=== PATIENT | male | born 1955 | race Caucasian/White ===

== ENCOUNTER 2017-10-14 16:47 | Emergency (ER) | payer BC ==
[~2017-10-14] VITALS: Ht 172.7 cm; Wt 97.9 kg
[2017-10-14 16:58] VITALS: BP 108/78
[2017-10-14] MEDS ORDERED: proparacaine 0.5% ophthalmic drops 15ml EACHEYE ONE (17:55)
[2017-10-14] MEDS ORDERED: CIPR2.5D18 RIGHTEYE (18:16)
[2017-10-14] MEDS ORDERED: HYDR-3965 PO ×2 (18:19→18:33)
[2017-10-14] MEDS ORDERED: ciprofloxacin 0.3% 2.5ml ophthalmic solution RIGHTEYE SCH (20:00)
== END 2017-10-14 18:45 | disposition home or self-care (01) ==
LOC: ER 16:48
DX: T15.01XA Foreign body in cornea, right eye, initial encounter (principal); I10 Essential (primary) hypertension; X58.XXXA Exposure to other specified factors, initial encounter; Y93.89 Activity, other specified; Y92.89 Other specified places as the place of occurrence of the external cause; Y99.8 Other external cause status
CPT/HCPCS: 65220; 99284

== ENCOUNTER 2019-08-17 10:53 | Emergency (ER) | payer BC ==
[~2019-08-17] VITALS: Ht 172.7 cm; Wt 114.0 kg
[~2019-08-17 10:53] MED LIST: CIPR2.5D18 RIGHTEYE; HYDR-3965 PO
[2019-08-17] MEDS ORDERED: TETanus/Pertussis (Acell)/Diphther VAC/PF (Tdap-Adult) 0.5ml syringe IMVAC ONE (13:10)
[2019-08-17 13:30] VITALS: BP 157/91
== END 2019-08-17 13:57 | disposition left against medical advice (07) ==
LOC: ER 10:53
DX: S05.91XA Unspecified injury of right eye and orbit, initial encounter (principal); I10 Essential (primary) hypertension; Z79.2 Long term (current) use of antibiotics; Z79.899 Other long term (current) drug therapy; W22.8XXA Striking against or struck by other objects, initial encounter; Y93.89 Activity, other specified; Y92.89 Other specified places as the place of occurrence of the external cause; Y99.8 Other external cause status
CPT/HCPCS: 90471; 90715; 99283

== ENCOUNTER 2021-04-05 09:06 | Emergency (ER) | payer MEDICARE, BC ==
[~2021-04-05] VITALS: Ht 172.7 cm; Wt 113.6 kg
[~2021-04-05 09:06] MED LIST changes: +CIPR2.5D14 RIGHTEYE; -CIPR2.5D18 RIGHTEYE
[2021-04-05] MEDS ORDERED: HYDROcodone/acetaminophen 10/325mg tab PO ONE (09:30)
[2021-04-05] MEDS ORDERED: ketorolac trometh. 30mg/ml inj. IV ONE (09:50)
[2021-04-05] MEDS ORDERED: fentaNYL/PF 50MCG/1 ML 2ML syringe IV ONE (09:50)
[2021-04-05] MEDS ORDERED: ondansetron/PF 4mg/2ml inj IV ONE (09:50)
[2021-04-05] MEDS ORDERED: propofol 10mg/ml 20ml vial IV ONE (10:10)
--- NOTE | 2021-04-05 10:34 | NUR ---
Patient states he takes two medications for hypertension; did not take any today. Patient states his will bring in medications to update list.
[2021-04-05] MEDS ORDERED: HYDR-3965 PO (12:09)
[2021-04-05 12:10] VITALS: BP 128/82
== END 2021-04-05 12:18 | disposition home or self-care (01) ==
LOC: ER 09:07
DX: S43.005A Unspecified dislocation of left shoulder joint, initial encounter (principal); S09.90XA Unspecified injury of head, initial encounter; S06.0X0A Concussion without loss of consciousness, initial encounter; S16.1XXA Strain of muscle, fascia and tendon at neck level, initial encounter; I10 Essential (primary) hypertension; Z79.2 Long term (current) use of antibiotics; W19.XXXA Unspecified fall, initial encounter; Y93.89 Activity, other specified; Y92.89 Other specified places as the place of occurrence of the external cause; Y99.8 Other external cause status
CPT/HCPCS: 23650; 70450; 72125; 73020; 73030; 93005; 94799; 96374; 96375; 99285; J1885; J2405; J3010